=== PATIENT | female | born 1950 | race Caucasian/White ===

== ENCOUNTER 2024-08-03 12:13 | Emergency (ER) | payer OTHER ==
--- OUTSIDE RECORDS SUMMARY | 2024-08-03 12:20 | XMS REPORT | Continuity of Care Document ---
Author Name Unknown Address [address] [facility] [address] [place] [address] Organization [facility] [place] Address [address] [facility] [address] [place] [address] Care Team Providers Care Producer Assistant Name Role Phone Sheila Catalan Attending Clinician Unavailable Ignacio Catalan Attending Clinician Unavailable Krissy CARMICHAEL Attending Clinician Unavailable Corina Romero Attending Clinician Unavailable Mariia Fowler Attending Clinician Unavailable Katharine Brandt Attending Clinician Unavailable Payers Payer Name Policy Type Policy Number Effective Date Expirati on Date Source [facility] AARP MCR Advantage (HMO-POS) 53 [id number] 2021 00:00:00 [facility] Problems Condition Name Condition Details Condition Category Status Onset Date Resolution Date Last Treatment Date Treating Clinician Comments Source [id number] Nicotine dependence , unspecifie d, uncomplica matthew Problem [facility] Cigarette smoker Cigarette smoker Problem [facility] [id number] Weight gain Problem [facility] [id number] Obesity (BMI 30.0-34.9) Problem [facility] [id number] Prediabete s Problem [facility] Multiple pulmonary nodules Multiple pulmonary nodules Problem [facility] [id number] Hyperlipid emia, mixed Problem [facility] [id number] Stage 3a chronic kidney disease Problem [facility] Status migrainosu s Migraine with status migrainosu s, not intractabl e, unspecifie d migraine type Problem [facility] Tobacco user Cigarette nicotine dependence without complicati on Problem [facility] Chronic pain Other chronic pain Problem [facility] Gastric ulcer Gastric ulcer Problem [facility] COPD - Chronic obstructiv e pulmonary disease COPD (chronic obstructiv e pulmonary disease) Problem [facility] Social History Social Habit Start Date Stop Date Quantity Comments Source History of Tobacco Use Current Smoker [facility] Sex Assigned At [facility] Smoking Status Start Date Stop Date Source Current Smoker 2024-07-07 00:00:00 [facility] Medications Ordered Medication Name Filled Medication Name Start Date Stop Date Current Medication? Ordering Clinician Indication Dosage Frequency Signature (SIG) Comments Components Source Echinacea - Echinacea - No QD Ec hinacea - Famotidine 40 MG Famotidine 40 MG No 1{table t} QD Famotidine 40 MG Anoro Ellipta 62.5-25 MCG/ACT Anoro Ellipta 62.5-25 MCG/ACT No 1{puff} QD Anoro Ellipta 62.5-25 MCG/ACT Rosuvastati n Calcium 20 MG Rosuvastati n Calcium 20 MG No 1{table t} QD Rosuvastat in Calcium 20 MG Fish Oil 1000 MG Fish Oil 1000 MG No 1{capsu le} Fish Oil 1000 MG Immunizations Ordered Immunization Name Filled Immunization Name Date Status Comments Source FLUZONE HIGH DOSE OVER 65 FLUZONE HIGH DOSE OVER 65 2022-02-13 08:43:00 Completed [facility] FLUZONE HIGH DOSE OVER 65 FLUZONE HIGH DOSE OVER 65 2022-02-13 08:43:00 Completed [facility] FLUZONE HIGH DOSE OVER 65 FLUZONE HIGH DOSE OVER 65 2022-02-13 08:43:00 Completed [facility] Fluad (IIV) - SDS - 0.5mL Fluad (IIV) - SDS - 0.5mL 2021-02-16 08:48:00 Completed [facility] FluAD FluAD 2021-02-16 08:48:00 Completed [facility] FluAD FluAD 2021-02-16 08:48:00 Completed [facility] FluAD FluAD 2021-02-16 08:48:00 Completed [facility] FluAD FluAD 2021-02-16 08:48:00 Completed [facility] Shingrix Shingrix 2020-05-13 10:53:00 Completed [facility] Adacel (Tdap) Adacel (Tdap) 2020-05-13 10:53:00 Completed [facility] Shingrix Shingrix 2020-05-13 10:53:00 Completed [facility] Adacel (Tdap) Adacel (Tdap) 2020-05-13 10:53:00 Completed [facility] Shingrix Shingrix 2020-05-13 10:53:00 Completed [facility] Adacel (Tdap) Adacel (Tdap) 2020-05-13 10:53:00 Completed [facility] Shingrix Shingrix 2020-05-13 10:53:00 Completed [facility] Adacel (Tdap) Adacel (Tdap) 2020-05-13 10:53:00 Completed [facility] Shingrix Shingrix 2020-05-13 10:53:00 Completed [facility] Adacel (Tdap) Adacel (Tdap) 2020-05-13 10:53:00 Completed [facility] FLUZONE HIGH DOSE OVER 65 FLUZONE HIGH DOSE OVER 65 2019-01-27 17:12:00 Completed [facility] FLUZONE HIGH DOSE OVER 65 FLUZONE HIGH DOSE OVER 65 2019-01-27 17:12:00 Completed [facility] FLUZONE HIGH DOSE OVER 65 FLUZONE HIGH DOSE OVER 65 2019-01-27 17:12:00 Completed [facility] FLUZONE HIGH DOSE OVER 65 FLUZONE HIGH DOSE OVER 65 2019-01-27 17:12:00 Completed [facility] FLUZONE HIGH DOSE OVER 65 FLUZONE HIGH DOSE OVER 65 2019-01-27 17:12:00 Completed [facility] FLUZONE HIGH DOSE OVER 65 FLUZONE HIGH DOSE OVER 65 2019-01-27 00:00:00 Completed [facility] Fluad (aIIV4) - SDS - 0.5mL Fluad (aIIV4) - SDS - 0.5mL Unknown Completed [facility] FluAD FluAD Unknown Completed [facility] Shingrix Shingrix Unknown Completed [facility] FLUZONE HIGH DOSE OVER 65 FLUZONE HIGH DOSE OVER 65 Unknown Completed [facility] Adacel (Tdap) Adacel (Tdap) Unknown Completed [facility] FluAD Quad SD FluAD Quad SD Unknown Completed [facility] FluAD FluAD Unknown Completed [facility] Shingrix Shingrix Unknown Completed [facility] FLUZONE HIGH DOSE OVER 65 FLUZONE HIGH DOSE OVER 65 Unknown Completed [facility] Adacel (Tdap) Adacel (Tdap) Unknown Completed [facility] Fluad (aIIV4) - SDS - 0.5mL Fluad (aIIV4) - SDS - 0.5mL Unknown Completed [facility] FluAD FluAD Unknown Completed [facility] Shingrix Shingrix Unknown Completed [facility] FLUZONE HIGH DOSE OVER 65 FLUZONE HIGH DOSE OVER 65 Unknown Completed [facility] Adacel (Tdap) Adacel (Tdap) Unknown Completed [facility] Fluad (aIIV4) - SDS - 0.5mL Fluad (aIIV4) - SDS - 0.5mL Unknown Completed [facility] FluAD FluAD Unknown Completed [facility] Shingrix Shingrix Unknown Completed [facility] FLUZONE HIGH DOSE OVER 65 FLUZONE HIGH DOSE OVER 65 Unknown Completed [facility] Adacel (Tdap) Adacel (Tdap) Unknown Completed [facility] Fluad (aIIV4) - SDS - 0.5mL Fluad (aIIV4) - SDS - 0.5mL Unknown Completed [facility] FluAD FluAD Unknown Completed [facility] Shingrix Shingrix Unknown Completed [facility] FLUZONE HIGH DOSE OVER 65 FLUZONE HIGH DOSE OVER 65 Unknown Completed [facility] Adacel (Tdap) Adacel (Tdap) Unknown Completed [facility] Fluad (aIIV4) - SDS - 0.5mL Fluad (aIIV4) - SDS - 0.5mL Unknown Completed [facility] FluAD FluAD Unknown Completed [facility] Shingrix Shingrix Unknown Completed [facility] FLUZONE HIGH DOSE OVER 65 FLUZONE HIGH DOSE OVER 65 Unknown Completed [facility] Adacel (Tdap) Adacel (Tdap) Unknown Completed [facility] Prevnar 20 (PCV20) Prevnar 20 (PCV20) Unknown Completed [facility] Vital Signs Vital Name Observation Time Observation Value Comments S ource height 2024-07-07 11:00:00 62 [in_i] Commo n [facility] weight 2024-07-07 11:00:00 144.6 [lb_av] Co [facility] temperature 2024-07-07 11:00:00 96 [degF] Comm on [facility] bmi 2024-07-07 11:00:00 26.44 kg/m2 Comm on [facility] oximetry 2024-07-07 11:00:00 94 % Commo n [facility] respiratory rate 2024-07-07 11:00:00 16 /min [facility] blood pressure systolic 2024-07-07 11:00:00 120 mm[Hg] [facility] blood pressure diastolic 2024-07-07 11:00:00 70 mm[Hg] [facility] height 2024-07-07 11:00:00 62 [in_i] Commo n [facility] weight 2024-07-07 11:00:00 144.6 [lb_av] Co mmon [facility] temperature 2024-07-07 11:00:00 96 [degF] Comm on [facility] bmi 2024-07-07 11:00:00 26.44 kg/m2 Comm on [facility] oximetry 2024-07-07 11:00:00 94 % Commo n [facility] respiratory rate 2024-07-07 11:00:00 16 /min Common [facility] blood pressure systolic 2024-07-07 11:00:00 120 mm[Hg] [facility] blood pressure diastolic 2024-07-07 11:00:00 70 mm[Hg] [facility] height 2024-02-06 08:40:00 62 [in_i] Commo n [facility] weight 2024-02-06 08:40:00 135 [lb_av] Comm on [facility] temperature 2024-02-06 08:40:00 97.3 [degF] Com mon [facility] bmi 2024-02-06 08:40:00 24.69 kg/m2 Comm on [facility] oximetry 2024-02-06 08:40:00 97 % Commo n [facility] respiratory rate 2024-02-06 08:40:00 16 /min [facility] blood pressure systolic 2024-02-06 08:40:00 128 mm[Hg] [facility] blood pressure diastolic 2024-02-06 08:40:00 74 mm[Hg] [facility] height 2024-02-06 08:40:00 62 [in_i] Commo n [facility] weight 2024-02-06 08:40:00 135 [lb_av] Comm on [facility] temperature 2024-02-06 08:40:00 97.3 [degF] Com mon [facility] bmi 2024-02-06 08:40:00 24.69 kg/m2 Comm on [facility] oximetry 2024-02-06 08:40:00 97 % Commo n [facility] respiratory rate 2024-02-06 08:40:00 16 /min [facility] blood pressure systolic 2024-02-06 08:40:00 128 mm[Hg] [facility] blood pressure diastolic 2024-02-06 08:40:00 74 mm[Hg] [facility] height 2023-08-07 10:20:00 62 [in_i] Commo n [facility] weight 2023-08-07 10:20:00 152.6 [lb_av] Co mmon [facility] temperature 2023-08-07 10:20:00 97.6 [degF] Com mon [facility] bmi 2023-08-07 10:20:00 27.91 kg/m2 Comm on [facility] oximetry 2023-08-07 10:20:00 96 % Commo n [facility] respiratory rate 2023-08-07 10:20:00 16 /min [facility] blood pressure systolic 2023-08-07 10:20:00 128 mm[Hg] [facility] blood pressure diastolic 2023-08-07 10:20:00 76 mm[Hg] [facility] height 2023-08-07 10:20:00 62 [in_i] Commo n [facility] weight 2023-08-07 10:20:00 152.6 [lb_av] Co mmon [facility] temperature 2023-08-07 10:20:00 97.6 [degF] Com mon [facility] bmi 2023-08-07 10:20:00 27.91 kg/m2 Comm on [facility] oximetry 2023-08-07 10:20:00 96 % Commo n [facility] respiratory rate 2023-08-07 10:20:00 16 /min [facility] blood pressure systolic 2023-08-07 10:20:00 128 mm[Hg] [facility] blood pressure diastolic 2023-08-07 10:20:00 76 mm[Hg] [facility] height 2023-03-06 11:20:00 62 [in_i] Commo n [facility] weight 2023-03-06 11:20:00 155 [lb_av] Comm on [facility] temperature 2023-03-06 11:20:00 97.6 [degF] Com mon [facility] bmi 2023-03-06 11:20:00 28.35 kg/m2 Comm on [facility] oximetry 2023-03-06 11:20:00 97 % Commo n [facility] respiratory rate 2023-03-06 11:20:00 16 /min [facility] blood pressure systolic 2023-03-06 11:20:00 114 mm[Hg] [facility] blood pressure diastolic 2023-03-06 11:20:00 69 mm[Hg] [facility] height 2023-02-04 09:20:00 62 [in_i] Commo n [facility] weight 2023-02-04 09:20:00 158.4 [lb_av] Co mmon [facility] temperature 2023-02-04 09:20:00 97.7 [degF] Com [facility] bmi 2023-02-04 09:20:00 28.97 kg/m2 Comm on [facility] oximetry 2023-02-04 09:20:00 96 % Commo n [facility] respiratory rate 2023-02-04 09:20:00 16 /min Common [facility] blood pressure systolic 2023-02-04 09:20:00 138 mm[Hg] Common [facility] blood pressure diastolic 2023-02-04 09:20:00 62 mm[Hg] Common [facility] height 2023-02-04 09:00:00 62 [in_i] Commo n [facility] weight 2023-02-04 09:00:00 158.4 [lb_av] Co mmon [facility] temperature 2023-02-04 09:00:00 97.7 [degF] Com [facility] bmi 2023-02-04 09:00:00 28.97 kg/m2 Comm on [facility] oximetry 2023-02-04 09:00:00 96 % Commo n [facility] respiratory rate 2023-02-04 09:00:00 16 /min Common [facility] blood pressure systolic 2023-02-04 09:00:00 138 mm[Hg] [facility] blood pressure diastolic 2023-02-04 09:00:00 62 mm[Hg] Common [facility] height 2022-10-18 08:40:00 62 [in_i] Commo n [facility] weight 2022-10-18 08:40:00 157.0 [lb_av] Co mmon [facility] temperature 2022-10-18 08:40:00 97.9 [degF] Com mon [facility] bmi 2022-10-18 08:40:00 28.71 kg/m2 Comm on [facility] oximetry 2022-10-18 08:40:00 96 % Commo n [facility] respiratory rate 2022-10-18 08:40:00 16 /min [facility] blood pressure systolic 2022-10-18 08:40:00 126 mm[Hg] [facility] blood pressure diastolic 2022-10-18 08:40:00 70 mm[Hg] Common [facility] height 2022-02-13 08:00:00 62 [in_i] Commo n [facility] weight 2022-02-13 08:00:00 167.0 [lb_av] Co mmon [facility] temperature 2022-02-13 08:00:00 98.0 [degF] Com [facility] bmi 2022-02-13 08:00:00 30.54 kg/m2 Comm on [facility] oximetry 2022-02-13 08:00:00 96 % Commo n [facility] respiratory rate 2022-02-13 08:00:00 16 /min Common [facility] blood pressure systolic 2022-02-13 08:00:00 139 mm[Hg] [facility] blood pressure diastolic 2022-02-13 08:00:00 68 mm[Hg] Common [facility] height 2022-02-13 08:40:00 62 [in_i] Commo n [facility] weight 2022-02-13 08:40:00 167 [lb_av] Comm on [facility] temperature 2022-02-13 08:40:00 98 [degF] Comm on [facility] bmi 2022-02-13 08:40:00 30.54 kg/m2 Comm on [facility] oximetry 2022-02-13 08:40:00 96 % Commo n [facility] blood pressure systolic 2022-02-13 08:40:00 139 mm[Hg] [facility] blood pressure diastolic 2022-02-13 08:40:00 68 mm[Hg] [facility] height 2021-08-10 14:20:00 62 [in_i] Commo n [facility] weight 2021-08-10 14:20:00 162 [lb_av] Comm on [facility] temperature 2021-08-10 14:20:00 98.0 [degF] Com mon [facility] bmi 2021-08-10 14:20:00 29.63 kg/m2 Comm on [facility] oximetry 2021-08-10 14:20:00 98 % Commo n [facility] respiratory rate 2021-08-10 14:20:00 16 /min Common [facility] blood pressure systolic 2021-08-10 14:20:00 126 mm[Hg] [facility] blood pressure diastolic 2021-08-10 14:20:00 66 mm[Hg] [facility] height 2021-02-16 08:00:00 62 [in_i] Commo n [facility] weight 2021-02-16 08:00:00 160 [lb_av] Comm on [facility] temperature 2021-02-16 08:00:00 98 [degF] Comm on [facility] bmi 2021-02-16 08:00:00 29.26 kg/m2 Comm on [facility] oximetry 2021-02-16 08:00:00 98 % Commo n [facility] respiratory rate 2021-02-16 08:00:00 19 /min Common [facility] blood pressure systolic 2021-02-16 08:00:00 119 mm[Hg] [facility] blood pressure diastolic 2021-02-16 08:00:00 71 mm[Hg] [facility] Encounters Start Date/Time End Date/Time Encounter Type Admission Type Attending [facility] Facility Care Department Encounter ID Source 2024-07-03 09:54:00 Outpatient Sheila Catalan [facility] [id number] [facility] 2023-03-05 12:52:00 Outpatient Sheila Catalan [facility] [id number] [facility] 2023-02-01 13:27:00 Outpatient Sheila Catalan [facility] [id number] [facility] 2023-01-31 10:54:00 Outpatient Ignacio Catalan [facility] [id number] [facility] 2022-11-21 15:09:00 Outpatient Ignacio Catalan [facility] [id number] [facility] 2022-10-18 08:36:00 Outpatient Ignacio Catalan [facility] [id number] [facility] 2022-10-17 13:10:00 Outpatient Krissy CARMICHAEL [facility] [id number] [facility] 2022-05-25 09:20:00 Outpatient Krissy Carmichael [facility] [id number] [facility] 2021-08-08 11:03:01 Outpatient Heather, Na [facility] [id number] [facility] 2021-07-20 15:04:00 Outpatient Heather, Na [facility] [id number] [facility] 2021-05-24 14:03:13 Outpatient Heather, Na [facility] [id number] [facility] 2021-05-24 14:02:04 Outpatient Romero, Na [facility] [id number] [facility] 2021-05-24 12:53:23 Outpatient Heather, Na [facility] [id number] [facility] 2021-05-24 12:51:56 Outpatient Janeth, Mariia [facility] [id number] [facility] 2021-05-24 12:27:05 Outpatient Janeth, Mariia [facility] [id number] [facility] 2021-05-24 12:21:37 Outpatient Janeth, Mariia [facility] [id number] [facility] 2021-05-24 12:20:36 Outpatient Janeth, Mariia [facility] [id number] [facility] 2021-05-24 12:13:32 Outpatient Janeth, Mariia [facility] [id number] [facility] 2021-05-24 12:13:06 Outpatient [facility] [id number] [facility] 2021-05-24 12:12:48 Outpatient [facility] [id number] [facility] 2021-05-24 12:04:07 Outpatient [facility] [id number] [facility] 2021-05-24 11:34:40 Outpatient Millender, Katharine [facility] [id number] [facility] 2021-05-24 11:02:52 Outpatient Millender, Katharine [facility] [id number] [facility] 2021-05-24 11:01:01 Outpatient Millender, Katharine [facility] [id number] [facility] 2024-07-23 00:00:00 2024-07-23 00:00:00 (TEL) [facility] [id number] [facility] 2024-07-07 00:00:00 2024-07-07 00:00:00 SUB ANNUAL MCR WELLNESS VISIT [facility] [id number] [facility] 2024-07-07 00:00:00 2024-07-07 00:00:00 OFFICE VISIT ESTAB PT LEVEL 4 [facility] [id number] [facility] 2024-03-02 00:00:00 2024-03-02 00:00:00 (TEL) [facility] [id number] [facility] 2024-02-10 00:00:00 2024-02-10 00:00:00 (TEL) [facility] [id number] [facility] 2024-02-06 00:00:00 2024-02-06 00:00:00 OFFICE VISIT ESTAB PT LEVEL 4 [facility] [id number] [facility] 2023-08-07 00:00:00 2023-08-07 00:00:00 OFFICE VISIT ESTAB PT LEVEL 3 [facility] [id number] [facility] 2023-03-06 00:00:00 2023-03-06 00:00:00 OFFICE VISIT ESTAB PT LEVEL 4 [facility] [id number] [facility] 2023-03-01 00:00:00 2023-03-01 00:00:00 (TEL) [facility] [id number] [facility] 2023-02-04 00:00:00 2023-02-04 00:00:00 SUB ANNUAL MCR WELLNESS VISIT [facility] [id number] [facility] 2023-02-04 00:00:00 2023-02-04 00:00:00 OFFICE VISIT ESTAB PT LEVEL 4 [facility] [id number] [facility] 2022-11-26 00:00:00 2022-11-26 00:00:00 (TEL) [facility] [id number] [facility] 2022-10-18 00:00:00 2022-10-18 00:00:00 OFFICE VISIT ESTAB PT LEVEL 4 [facility] [id number] [facility] 2022-02-27 00:00:00 2022-02-27 00:00:00 (WEB) [facility] [id number] [facility] 2022-02-13 00:00:00 2022-02-13 00:00:00 SUB ANNUAL MCR WELLNESS VISIT [facility] [id number] [facility] 2022-02-13 00:00:00 2022-02-13 00:00:00 OFFICE VISIT EST PT LEVEL 3 [facility] [id number] [facility] 2021-09-22 00:00:00 2021-09-22 00:00:00 (TEL) [facility] [id number] [facility] 2021-08-10 00:00:00 2021-08-10 00:00:00 OFFICE VISIT EST PT LEVEL 3 [facility] [id number] [facility] 2021-03-31 00:00:00 2021-03-31 00:00:00 (TEL) [facility] [id number] [facility] 2021-02-16 00:00:00 2021-02-16 00:00:00 OFFICE VISIT EST PT LEVEL 3 [facility] [id number] [facility] 2020-09-12 00:00:00 2020-09-12 00:00:00 Outpatient [facility] [id number] [facility] 2020-08-16 00:00:00 2020-08-16 00:00:00 Outpatient [facility] [id number] [facility] 2020-06-28 00:00:00 2020-06-28 00:00:00 Outpatient [facility] [id number] [facility] 2020-06-27 00:00:00 2020-06-27 00:00:00 Outpatient STLMLC STLMLC [id number] [facility] 2020-05-30 00:00:00 2020-05-30 00:00:00 Outpatient STLMLC STLMLC [id number] [facility] 2020-05-30 00:00:00 2020-05-30 00:00:00 Outpatient STLMLC STLMLC [id number] [facility] 2020-05-13 00:00:00 2020-05-13 00:00:00 Outpatient STLMLC STLMLC [id number] [facility] 2020-04-14 00:00:00 2020-04-14 00:00:00 Outpatient STLMLC STLMLC [id number] [facility] 2020-04-12 00:00:00 2020-04-12 00:00:00 Outpatient STLMLC STLMLC [id number] [facility] 2019-12-01 08:40:00 2019-12-01 08:40:00 [facility] [id number] [facility] 2019-09-12 10:58:00 2019-09-12 10:58:00 [facility] [id number] [facility] 2019-06-07 18:44:00 2019-06-07 18:44:00 [facility] [id number] [facility] 2019-06-07 18:36:00 2019-06-07 18:36:00 [facility] [id number] [facility] 2019-06-02 14:17:00 2019-06-02 14:17:00 [facility] [id number] [facility] 2019-06-02 14:00:00 2019-06-02 14:00:00 [facility] [facility] [address] [facility] [id number] [facility] 2019-05-14 08:00:00 2019-05-14 08:00:00 [facility] [address] [facility] [id number] [facility] 2019-01-27 16:20:00 2019-01-27 16:20:00 [place] [place] [address] [facility] [id number] [facility] 2018-07-11 09:43:00 2018-07-11 09:43:00 [facility] [id number] [facility] 2018-06-10 12:00:00 2018-06-10 12:00:[address] [facility] [id number] [facility] 2018-06-02 13:00:00 2018-06-02 13:00:00 [facility] [id number] [facility] 2017-09-04 11:37:00 2017-09-04 11:37:00 [facility] [id number] [facility] 2017-08-27 10:15:00 2017-08-27 10:15:[address] [facility] [id number] [facility] Results Test Description Test Time Test Comments Results Result Co mments Source COMPREHENSIVE METABOLIC [id number] 00:00:00* Test Item Value Reference Range Interpretation Comme nts HEMOGLOBIN A1c (test code = 4548-4) 6.1 % See_Comment H [Automated messa ge] The system which generated this result transmitted reference range: 4.2-5.6 %. The reference range was not used to interpret this result as normal/abnormal. NUCLEATED RBCS (test code = 04589-5) 0.0 /100 WBC'S See_Comment [Automated message] The system which generated this result transmitted reference range: 0.0 /100 WBC'S. The reference range was not used to interpret this result as normal/abnormal. ABSOLUTE EOSINOPHILS (test code = 95088-9) 0.22 K/UL See_Comment [Automated message] The system which generated this result transmitted reference range: 0.00-0.50 K/UL. The reference range was not used to interpret this result as normal/abnormal. ABSOLUTE LYMPHOCYTES (test code = 60773-5) 2.82 K/UL See_Comment [Automated message] The system which generated this result transmitted reference range: 1.00-4.00 K/UL. The reference range was not used to interpret this result as normal/abnormal. ABSOLUTE MONOCYTES (test code = 65579-9) 0.92 K/UL See_Comment [Automated message] The system which generated this result transmitted reference range: 0.20-1.00 K/UL. The reference range was not used to interpret this result as normal/abnormal. ABSOLUTE NEUTROPHILS (test code = 27833-6) 5.29 K/UL See_Comment [Automated message] The system which generated this result transmitted reference range: 1.50-7.50 K/UL. The reference range was not used to interpret this result as normal/abnormal. BASOPHILS (test code = 17782-0) 0.5 % EOSINOPHILS (test code = 77596-3) 2.4 % HEMATOCRIT (test code = 18237-5) 41.7 % See_Comment [Automated [employer]] The system which generated this result transmitted reference range: 34.0-45.0 %. The reference range was not used to interpret this result as normal/abnormal. HEMOGLOBIN (test code = 718-7) 14.3 G/DL See_Comment [Automated messa ge] The system which generated this result transmitted reference range: 11.5-15.5 G/DL. The reference range was not used to interpret this result as normal/abnormal. LYMPHOCYTES (test code = 03853-2) 30.3 % MCH (test code = 86940-5) 31.8 PG See_Comment [Automated [employer]] The system which generated this result transmitted reference range: 25.0-33.0 PG. The reference range was not used to interpret this result as normal/abnormal. MCHC (test code = 53767-0) 34.3 G/DL See_Comment [Automated messa ge] The system which generated this result transmitted reference range: 31.0-36.0 G/DL. The reference range was not used to interpret this result as normal/abnormal. MCV (test code = 56726-2) 92.9 fL See_Comment [Automated messa ge] The system which generated this result transmitted reference range: 80.0-99.0 fL. The reference range was not used to interpret this result as normal/abnormal. MONOCYTES (test code = 36374-7) 9.9 % NEUTROPHILS (test code = 00152-6) 56.7 % PLATELET COUNT (test code = 64983-7) 319 K/UL See_Comment [Automated messa ge] The system which generated this result transmitted reference range: 130-400 K/UL. The reference range was not used to interpret this result as normal/abnormal. RBC (test code = 98376-8) 4.49 M/UL See_Comment [Automated messa ge] The system which generated this result transmitted reference range: 3.80-5.40 M/UL. The reference range was not used to interpret this result as normal/abnormal. RDW (test code = 37141-5) 12.0 % See_Comment [Automated messa ge] The system which generated this result transmitted reference range: 11.5-15.0 %. The reference range was not used to interpret this result as normal/abnormal. WBC (test code = 73858-0) 9.3 K/UL See_Comment [Automated messa ge] The system which generated this result transmitted reference range: 3.5-11.0 K/UL. The reference range was not used to interpret this result as normal/abnormal. CALC LDL CHOL (test code = 97582-5) 86 MG/DL See_Comment [Automated messa ge] The system which generated this result transmitted reference range: <100 MG/DL. The reference range was not used to interpret this result as normal/abnormal. CHOLESTEROL (test code = 2093-3) 160 MG/DL See_Comment [Automated messa ge] The system which generated this result transmitted reference range: <200 MG/DL. The reference range was not used to interpret this result as normal/abnormal. HDL CHOLESTEROL (test code = 2085-9) 49 MG/DL See_Comment [Automated messa ge] The system which generated this result transmitted reference range: >39 MG/DL. The reference range was not used to interpret this result as normal/abnormal. RISK RATIO LDL/HDL (test code = 19597-3) 1.76 RATIO See_Comment [Automated message] The system which generated this result transmitted reference range: <3.22 RATIO. The reference range was not used to interpret this result as normal/abnormal. TRIGLYCERIDES (test code = 2571-8) 148 MG/DL See_Comment [Automated messa ge] The system which generated this result transmitted reference range: <150 MG/DL. The reference range was not used to interpret this result as normal/abnormal. ALBUMIN (test code = 1751-7) 4.2 G/DL See_Comment [Automated [employer]] The system which generated this result transmitted reference range: 3.5-5.2 G/DL. The reference range was not used to interpret this result as normal/abnormal. ALKALINE PHOSPHATASE (test code = 6768-6) 47 U/L See_Comment [Automated message] The system which generated this result transmitted reference range: 40-142 U/L. The reference range was not used to interpret this result as normal/abnormal. BILIRUBIN, TOTAL (test code = 1975-2) 0.3 MG/DL See_Comment [Automated [employer]] The system which generated this result transmitted reference range: <=1.2 MG/DL. The reference range was not used to interpret this result as normal/abnormal. BUN (test code = 3094-0) 15 MG/DL See_Comment [Automated [employer]] The system which generated this result transmitted reference range: 8-23 MG/DL. The reference range was not used to interpret this result as normal/abnormal. CALCIUM (test code = 65681-6) 9.7 MG/DL See_Comment [Automated messa ge] The system which generated this result transmitted reference range: 8.5-10.5 MG/DL. The reference range was not used to interpret this result as normal/abnormal. CALC A/G RATIO (test code = 1759-0) 1.5 RATIO See_Comment [Automated [employer]] The system which generated this result transmitted reference range: 1.0-2.6 RATIO. The reference range was not used to interpret this result as normal/abnormal. CALC BUN/CREAT (test code = 3097-3) 18 RATIO See_Comment [Automated messa ge] The system which generated this result transmitted reference range: 6-28 RATIO. The reference range was not used to interpret this result as normal/abnormal. CALC GLOBULIN (test code = 94160-8) 2.8 G/DL See_Comment [Automated messa ge] The system which generated this result transmitted reference range: 1.9-3.7 G/DL. The reference range was not used to interpret this result as normal/abnormal. CARBON DIOXIDE (test code = 1963-8) 27 MEQ/L See_Comment [Automated messa ge] The system which generated this result transmitted reference range: 19-31 MEQ/L. The reference range was not used to interpret this result as normal/abnormal. CHLORIDE (test code = 2075-0) 103 MEQ/L See_Comment [Automated messa ge] The system which generated this result transmitted reference range: 95-107 MEQ/L. The reference range was not used to interpret this result as normal/abnormal. CREATININE (test code = 2160-0) 0.82 MG/DL See_Comment [Automated messa ge] The system which generated this result transmitted reference range: 0.60-1.30 MG/DL. The reference range was not used to interpret this result as normal/abnormal. eGFR (2020 CKD-EPI) (test code = 05424-6) 76 ML/MIN/1.73 See_Comment [Automated message] The system which generated this result transmitted reference range: >60 ML/MIN/1.73. The reference range was not used to interpret this result as normal/abnormal. GLUCOSE (test code = 1558-6) 105 MG/DL See_Comment H [Automated messa ge] The system which generated this result transmitted reference range: 70-99 MG/DL. The reference range was not used to interpret this result as normal/abnormal. POTASSIUM (test code = 2823-3) 4.9 MEQ/L See_Comment [Automated messa ge] The system which generated this result transmitted reference range: 3.5-5.4 MEQ/L. The reference range was not used to interpret this result as normal/abnormal. PROTEIN, TOTAL (test code = 2885-2) 7.0 G/DL See_Comment [Automated messa ge] The system which generated this result transmitted reference range: 6.1-8.3 G/DL. The reference range was not used to interpret this result as normal/abnormal. AST (test code = 1920-8) 17 U/L See_Comment [Automated messa ge] The system which generated this result transmitted reference range: 9-40 U/L. The reference range was not used to interpret this result as normal/abnormal. ALT (test code = 1742-6) 13 U/L See_Comment [Automated messa ge] The system which generated this result transmitted reference range: 5-40 U/L. The reference range was not used to interpret this result as normal/abnormal. SODIUM (test code = 2951-2) 141 MEQ/L See_Comment [Automated messa ge] The system which generated this result transmitted reference range: 133-146 MEQ/L. The reference range was not used to interpret this result as normal/abnormal. 3D SCR AURELIO BILAT W/CAD3D SCR AURELIO BILAT W/CAD3D SCR AURELIO BILAT W/CAD3D SCR AURELIO BILAT W/CAD
--- NOTE | 2024-08-03 12:53 | RAD REPORT ---
EXAM: CT brain without contrast HISTORY: DIZZINESS COMPARISON: None TECHNIQUE: Multiple contiguous axial images were obtained and a CT of the brain without contrast. Sag ittal and coronal reformats were performed. One or more of the following dose reduction techniques were used: Automated exposure control, adjust ment of the mA and/or kV according to patient size, and/or iterative reconstruction. FINDINGS: No evidence of hydrocephalus, intracranial hemorrhage, or extra-axial fluid collection. The brain is normal in morphology. No evidence of midline shift or areas of brain edema. The calvarium is intact. The visualized paranasal sinuses and mastoid air cells are essentially clear . IMPRESSION: No evidence of acute intracranial abnormality.
[2024-08-03 12:57] LABS: Absolute Eosinophils 0.2 K/uL (0-0.5); Absolute Lymphocytes (CBC) 3.1 K/uL (0.7-4.9); Absolute Monocytes 0.8 K/uL (0.1-1.3); Absolute Neutrophil 4.5 K/uL (1.8-8.0); Basophils % 0.3 % (0-1.3); Eosinophils % 2.1 % (0-4.4); Hematocrit 42.3 % (36.0-45.0); Hemoglobin 14.4 g/dL (12.0-15.0); Lymphocytes % 36.1 % (15.3-44.8); MCH 31.9 pg (27.0-35.0); MCHC 34.1 g/dL (32.0-36.0); MCV 93.6 fL (80-100); MPV 8.6 fL (7.6-11.3); Monocytes % 8.8 % (3.3-12.3); Neutrophils % 52.7 % (41.7-73.7); Nucleated Red Blood Cells % 0.1 % (0-0); Platelets 272 thou/uL (152-406); RBC Red Blood Cell Count 4.52 M/uL (3.86-4.86); Red Cell Distribution Width 13.1 % (12.1-15.2)
[2024-08-03 12:58] LABS: PT Prothrombin Time 11.5 SECONDS (10-13.0); PTT, Activated Partial Thromb 28.8 SECONDS (27.2-37.4); Protime INR 1.01
[2024-08-03 13:09] LABS: ALT/SGPT 20 U/L (13-56); AST/SGOT 15 U/L (15-37); Albumin 3.8 g/dL (3.4-5.0); Alkaline Phosphatase 47 U/L (45-117); Anion Gap 6.8 mEq/L (5.0-15.0); BUN Blood Urea Nitrogen 13 mg/dL (7-18); Bicarbonate 30 mEq/L (21-32); Bilirubin Total 0.3 mg/dL (0.2-1.0); Globulin 3.7 g/dL (2.3-3.5); Glomerular Filtration Rate 85 ml/min (=/>90); Glucose Level 96 mg/dL (74-106); Magnesium 2.3 mg/dL (1.6-2.4); Potassium 3.8 mEq/L (3.5-5.1); Protein, Total 7.5 g/dL (6.4-8.2); Sodium Level 137 mEq/L (136-145); Troponin High Sensitivity 3.6 pg/mL (<58.9)
[2024-08-03 13:20] LABS: Specific Gravity 1.009 (1.005-1.030); Sqamous Epithelial None Seen /HPF (None Seen); Urine Bacteria None Seen /HPF (<20); Urine Bilirubin NEGATIVE (Negative); Urine Blood Negative (Negative); Urine Clarity Clear (Clear); Urine Color Colorless (Yellow); Urine Culture Reflex Order NOT NEEDED; Urine Glucose NEGATIVE (Negative); Urine Ketones NEGATIVE (Negative); Urine Microscopic Reflex YN ORDER UMIC; Urine Nitrite NEGATIVE (Negative); Urine Protein NEGATIVE (Negative); Urine RBC <5 /HPF (None Seen); Urine Urobilinogen Normal (Normal); Urine WBC <5 /HPF (<5); Urine pH 6.5 (5.0-7.0)
[2024-08-03 13:21] LABS: Bilirubin Direct < 0.2 mg/dL (0-0.2); Bilirubin Indirect, Calculated 0.1 mg/dL (0.2-0.8)
--- NOTE | 2024-08-03 13:55 | EDPHYS ---
Physician Documentation [facility] Name: Alley Piedra Age: 73 yrs Sex: Female : 1950 Arrival Date: 08/03/2024 Time: 12:13 Bed 6 Private MD: ED Physician Rajeev Mcmullen HPI: 08/03 12:34 This 73 yrs old Female presents to ER via Unassigned with complaints of Dizziness. sb4 12:34 Patient reports intermittent dizzy spells for 3 months now. She states she came in sb4 today because her family members have been urging her to. She states that she notices these episodes typically occur after she has had a poor night of sleep. States that the dizziness typically resolves on its own but then is followed by headache. States that she recently had a cardiac workup done that was normal. 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 Historical: - Allergies: 12:38 Doxycycline; ap3 12:38 Sulfa (Sulfonamide Antibiotics); ap3 - Home Meds: 12:38 rosuvastatin 10 mg oral tablet daily [Active]; ap3 - PMHx: 12:38 Chronic obstructive lung disease; ap3 - Immunization history:: Client reports receiving the 2nd dose of the Covid vaccine, Pneumococcal vaccine is up to date, Flu vaccine is up to date. - Infectious Disease History:: Denies. - Social history:: Smoking status: Patient reports the use of cigarette tobacco products, smokes one pack cigarettes per day. ROS: 12:34 Constitutional: Negative for fever, chills, and weight loss, sb4 12:34 Neuro: Positive for dizziness, 12:34 All other systems are negative, Exam: 12:34 Constitutional: This is a well developed, well nourished patient who is awake, alert, sb4 and in no acute distress. Head/Face: Normocephalic, atraumatic. Eyes: Extra-ocular motions intact. Periorbital areas with no swelling, redness, or edema. ENT: Mucous membranes moist. Cardiovascular: Regular rate and rhythm with a normal S1 and S2. Respiratory: No increased work of breathing, no retractions or nasal flaring. Neuro: Awake and alert, GCS 15, oriented to person, place, time, and situation. Motor strength 5/5 in all extremities. Sensory grossly intact. Vital Signs: 12:36 BP 105 / 88; Pulse 82; Resp 18; Temp 97.7(O); Pulse Ox 100% on R/A; Weight 58.51 kg; ap3 13:40 BP 124 / 44 Supine; Pulse 70; Resp 18; Pulse Ox 96% on R/A; db 13:43 BP 138 / 74 Sitting; Pulse 85; db 13:48 BP 122 / 75 Standing; Pulse 86; Resp 16; db MDM: 12:26 Medical Screening Exam initiated sb4 13:05 Differential diagnosis: hypovolemia, vertigo, electrolyte abnormality. sb4 13:54 Data reviewed: vital signs, nurses notes, lab test result(s), radiologic studies, and sb4 as a result, I will discharge patient. Counseling: I had a detailed discussion with the patient and/or guardian regarding the historical points, exam findings, and any diagnostic results supporting the discharge/admit diagnosis, lab results, radiology results, the need for outpatient follow up, a neurologist, to return to the emergency department if symptoms worsen or persist or if there are any questions or concerns that arise at home. 08/03 12:34 Order name: Basic Metabolic Panel; Complete Time: 13:21 sb4 08/03 12:34 Order name: CBC with Diff; Complete Time: 13:00 sb4 08/03 12:34 Order name: Hepatic Function; Complete Time: 13:21 sb4 08/03 12:34 Order name: Magnesium; Complete Time: 13:21 sb4 08/03 12:34 Order name: Protime (+inr); Complete Time: 12:59 sb4 08/03 12:34 Order name: Ptt, Activated; Complete Time: 12:59 sb4 08/03 12:34 Order name: Troponin High Sensitivity; Complete Time: 13:21 sb4 08/03 12:34 Order name: Urinalysis w/ reflexes; Complete Time: 13:21 sb4 08/03 12:34 Order name: CT Head Brain wo Cont; Complete Time: 12:54 sb4 08/03 12:34 Order name: IV Saline Lock; Complete Time: 12:54 sb4 08/03 12:34 Order name: Labs collected and sent; Complete Time: 12:54 sb4 08/03 12:34 Order name: O2 Per Protocol; Complete Time: 12:41 sb4 08/03 12:34 Order name: O2 Sat Monitoring; Complete Time: 12:41 sb4 08/03 12:34 Order name: Orthostatics; Complete Time: 13:49 sb4 Administered Medications: No medications were administered Disposition Summary: 08/03/24 13:55 Discharge Ordered Notes: Location: Home sb4 Problem: an ongoing problem sb4 Symptoms: are unchanged sb4 Condition: Stable sb4 Diagnosis - Dizziness and giddiness sb4 Followup: sb4 - With: Alek Gomez MD - When: 1 week - Reason: Further diagnostic work-up, Recheck today's complaints, Re-evaluation by your physician Discharge Instructions: - Discharge Summary Sheet sb4 - Dizziness, [place]lt[place]-sk-Buza sb4 Forms: - Patient Portal Instructions sb4 - Leadership Thank You Letter sb4 Prescriptions: - Meclizine 25 mg Oral Tablet - take 1 tablet ORAL route every 8 hours As needed; 30 tablet; Refills: 0, sb4 Product Selection Permitted Signatures: Dispatcher [employer] Nilam Chen RN RN ap3 Elena Grullon PATrevor PATrevor sb4
--- NOTE | 2024-08-03 13:55 | ER ---
Nurse's Notes [facility] Name: Alley Piedra Age: 73 yrs Sex: Female : 1950 Arrival Date: 08/03/2024 Time: 12:13 Bed 6 Private MD: Diagnosis: Dizziness and giddiness Presentation: 08/03 12:36 Chief complaint: Patient states: she has been having "woozy spells" intermittently for ap3 a few months. patient reports she will get a headache after this happens, which is resolved with Tylenol. patient reports her last one was this morning. Coronavirus screen: At this time, the client does not indicate any symptoms associated with coronavirus-19. Ebola Screen: No symptoms or risks identified at this time. Initial Sepsis Screen: Does the patient meet any 2 criteria? No. Patient's initial sepsis screen is negative. Does the patient have a suspected source of infection? No. Patient's initial sepsis screen is negative. Risk Assessment: Do you want to hurt yourself or someone else? Patient reports no desire to harm self or others. Onset of symptoms is unknown. 12:36 Method Of Arrival: Ambulatory ap3 12:36 Acuity: JACIEL 3 ap3 Triage Assessment: 12:39 Headache History: The patient has had previous headaches and this one is similar to ap3 previous episodes. General: Appears in no apparent distress. Behavior is calm, cooperative, appropriate for age. Pain: Denies pain. Neuro: Level of Consciousness is awake, alert, obeys commands, Oriented to person, place, time, situation, Appropriate for age. Cardiovascular: Patient's skin is warm and dry. Respiratory: Airway is patent Respiratory effort is even, unlabored, Respiratory pattern is regular, symmetrical. Historical: - Allergies: 12:38 Doxycycline; ap3 12:38 Sulfa (Sulfonamide Antibiotics); ap3 - Home Meds: 12:38 rosuvastatin 10 mg oral tablet daily [Active]; ap3 - PMHx: 12:38 Chronic obstructive lung disease; ap3 - Immunization history:: Client reports receiving the 2nd dose of the Covid vaccine, Pneumococcal vaccine is up to date, Flu vaccine is up to date. - Infectious Disease History:: Denies. - Social history:: Smoking status: Patient reports the use of cigarette tobacco products, smokes one pack cigarettes per day. Screenin:40 [facility] ED Fall Risk Assessment (Adult) History of falling in the last 3 months, ap3 including since admission No falls in past 3 months (0 pts) Confusion or Disorientation No (0 pts) Intoxicated or Sedated No (0 pts) Impaired Gait No (0 pts) Mobility Assist Device Used No (0 pt) Altered Elimination No (0 pt) Score/Fall Risk Level 0 - 2 = Low Risk Oriented to surroundings, Maintained a safe environment, Educated pt \\T\\ family on fall prevention, incl call for assistance when getting out of bed, Assessed \\T\\ reinforced patient's understanding of fall precautions, Hourly rounding (assess needs \\T\\ fall precautionary measures) done, Used ambulatory aids as needed (educated on \\T\\ assisted with). Abuse screen: Denies threats or abuse. Nutritional screening: No deficits noted. Tuberculosis screening: No symptoms or risk factors identified. Assessment: 13:03 Reassessment: Patient appears in no apparent distress at this time. Patient and/or jl7 family updated on plan of care and expected duration. Pain level reassessed. Patient is alert, oriented x 3, equal unlabored respirations, skin warm/dry/pink. 13:51 Reassessment: Patient appears in no apparent distress at this time. Patient and/or db family updated on plan of care and expected duration. Pain level reassessed. Patient is alert, oriented x 3, equal unlabored respirations, skin warm/dry/pink. Pain: Denies pain. Vital Signs: 12:36 BP 105 / 88; Pulse 82; Resp 18; Temp 97.7(O); Pulse Ox 100% on R/A; Weight 58.51 kg; ap3 13:40 BP 124 / 44 Supine; Pulse 70; Resp 18; Pulse Ox 96% on R/A; db 13:43 BP 138 / 74 Sitting; Pulse 85; db 13:48 BP 122 / 75 Standing; Pulse 86; Resp 16; db ED Course: 12:25 Patient arrived in ED. cj3 12:25 Elena Grullon PA-C is PHCP. sb4 12:25 Rajeev Mcmullen MD is Attending Physician. sb4 12:38 Triage completed. ap3 12:40 Patient has correct armband on for positive identification. Bed in low position. Call ap3 light in reach. Adult w/ patient. Client placed on continuous cardiac and pulse oximetry monitoring. NIBP monitoring applied. solder leveler printed circuit boards on. Pulse ox on. NIBP on. Sitter at bedside. 12:40 Arm band placed on right wrist. ap3 12:41 Geraldine Barlow, RN is Primary Nurse. db 12:[address] db 12:44 Initial lab(s) drawn, by ED staff, sent to lab. Inserted saline lock: 20 gauge in right db antecubital area, using aseptic technique. Blood collected. Flushed with 10 mL NS. 12:47 CT Head Brain wo Cont In Process Unspecified. EDMS 13:08 Assisted to bathroom. jl7 13:55 Alek Gomez MD is Referral Physician. sb4 14:21 Provided Education on: DISCHARGE AND FOLLOWUP. Warm blanket given. Pillow given. db 14:21 No provider procedures requiring assistance completed. IV discontinued, intact, db bleeding controlled, No redness/swelling at site. Administered Medications: No medications were administered Medication: 13:51 VIS not applicable for this client. db Outcome: 13:55 Discharge ordered by MD. sb4 14:21 Discharged to home ambulatory, with family, db 14:21 Condition: stable 14:21 Discharge instructions given to patient, family, Instructed on discharge instructions, follow up and referral plans. Prescriptions given X 1, 14:22 Patient left the ED. db Signatures: Dispatcher [employer] EDMS Paola Fuentes RN RN jl7 Nilam Sanchez RN RN ap3 Geraldine Barlow, RN RN Elena Sharma, PA-Flower PA-Елена Ovalles 3
[2024-08-03 14:31] VITALS: TEMP 97.7
[2024-08-03 14:37] VITALS: O2SAT 96
[2024-08-03 14:48] VITALS: BP 122/75
== END 2024-08-03 14:22 | disposition home or self-care (01) ==
LOC: ER 12:13
DX: R42 Dizziness and giddiness (principal); J44.9 Chronic obstructive pulmonary disease, unspecified; F17.210 Nicotine dependence, cigarettes, uncomplicated
CPT/HCPCS: 36415; 70450; 80048; 80076; 81001; 83735; 84484; 85025; 85610; 85730; 99285